=== PATIENT | female | born 1940 | race Caucasian/White ===

== ENCOUNTER 2019-02-28 12:39 | Day surgery (SDC) | payer OTHER ==
[~2019-02-28] VITALS: Ht 160 cm; Wt 49.4 kg
[~2019-02-28 12:39] MED LIST: AMBIEN 5 MG TABL5 M1 PO; ASPIR 8181 MG PO; FENOFIBRATE134 MG PO; GABAPENTIN 100100 MG PO; LIPITOR 20 MG T20 M1 PO; LOPRESSOR100 M1 PO
[2019-02-28 13:35] VITALS: BP 179/67
--- NOTE | 2019-03-04 06:12 | O ---
[facility] [place] [address] OPERATIVE REPORT Name: SAM GUO Room #: DEP [facility]..#: [id number] Admission: 02/28/19 Attend Phys: Leighton Sierra MD Discharge: 02/28/19 Date of : 38 Report #: [id number] THIS REPORT FOR: //name// CC: ROBERTO Sidhu II DO Leighton Sierra PREOPERATIVE DIAGNOSIS: Unilateral right-sided nasal lacrimal duct obstruction. POSTOPERATIVE DIAGNOSIS: Unilateral right-sided nasal lacrimal duct obstruction. OPERATION PERFORMED: Unilateral right-sided endoscopic balloon dacryoplasty with silicone intubation. ANESTHESIA: General. COMPLICATIONS: None. INDICATIONS FOR SURGERY: This patient has acquired unilateral nasal lacrimal duct stenosis with chronic tearing and discharge. The current procedures are undertaken in order to improve the patient's level of lacrimal outflow and visual clarity. Informed consent was obtained to include but not limited to the potential risks for damage to the eye, loss of vision, bleeding, infection, failure to improve the problem and need for further surgery. DESCRIPTION OF OPERATION: The patient was taken to the operating room, where general anesthesia was administered. The medial canthus was anesthetized with 2% Xylocaine with epinephrine mixed with equal parts of 0.75% Marcaine with Wydase. The lateral wall of the nose was then injected with the same anesthetic mixture. The nose was packed with Afrin-soaked Cottonoids. The patient was then prepped and draped in the usual sterile fashion. The superior and inferior puncta were then atraumatically dilated with a punctum dilator. A size 0 lacrimal probe was then passed through the superior canalicular system and through the stenosed nasal lacrimal duct. The nasal packing was removed and the endoscope was brought into the field. The inferior turbinate was gently infractured with a [place] periosteal elevator to allow visualization of the inferior meatus in the area of the opening of the valve of Hasner in the nose. The probe was found and confirmed to be in the proper location. It was removed and subsequently replaced with a size 1 and a size 2 Tobar probe, which also had their passage confirmed endoscopically to be in the proper location. [facility] [address] [place] [address] OPERATIVE REPORT Name: SAM GUO Room #: DEP [facility]..#: [id number] Admission: 02/28/19 Attend Phys: Leighton Sierra MD Discharge: 02/28/19 Date of : 38 Report #: [id number] A 3 x 15 LacriCatheter was lubricated with a small quantity of ophthalmic antibiotic ointment. The LacriCatheter was then passed through the superior canalicular system and the stenosed nasal lacrimal duct. The LacriCatheter was confirmed to be in the proper location endoscopically intranasally in the inferior meatus. The LacriCatheter was inflated to 9 atmospheres for 90 seconds and deflated. The catheter was then inflated to 9 atmospheres for 60 seconds. The catheter was then withdrawn to the proximal black ring. It was then inflated to 9 atmospheres for 90 seconds. The balloon was then deflated and reinflated to 9 atmospheres for 60 seconds. The balloon was the aspirated and withdrawn to the distal black ring. It was then inflated to 9 atmospheres for 90 seconds. The balloon was deflated and reinflated to 9 atmospheres for 60 seconds. The balloon was then deflated and vigorously aspirated as it was withdrawn through the superior canalicular system. A George tube was then passed through the superior canalicular system and out the dilated duct. The George tube was secured under the inferior turbinate in the inferior meatus with a George hook and retrieved endoscopically. The George tube was then passed through the inferior canalicular system in a similar fashion and was retrieved endoscopically in the nose atraumatically. The George tube was then secured to itself with 3 square throws and then to the lateral wall of the nose with a 5-0 Prolene suture. Antibiotic steroid drops were then placed in the eye. A small quantity of ophthalmic antibiotic ointment was placed on the George tube. The patient was then transported to the recovery area with no anesthetic or operative complications being noted. <ELECTRONICALLY SIGNED> By: Leighton Sierra MD 03/04/19 [id number] Leighton Sierra MD /nt
== END 2019-02-28 16:10 | disposition home or self-care (01) ==
LOC: OR 12:39 → TBA 12:40 → OR 13:24
DX: H04.551 Acquired stenosis of right nasolacrimal duct (principal); I10 Essential (primary) hypertension; I25.2 Old myocardial infarction; F17.210 Nicotine dependence, cigarettes, uncomplicated; Z90.710 Acquired absence of both cervix and uterus; Z87.442 Personal history of urinary calculi; Z98.41 Cataract extraction status, right eye; Z98.42 Cataract extraction status, left eye; Z98.890 Other specified postprocedural states; Z79.899 Other long term (current) drug therapy; Z90.49 Acquired absence of other specified parts of digestive tract; Z88.2 Allergy status to sulfonamides; Z88.8 Allergy status to other drugs, medicaments and biological substances; Z79.82 Long term (current) use of aspirin
CPT/HCPCS: 50010; 50101; 50386; 50398; 51777; 55343; 56528; 62110; 62900; 64037; 70005